=== PATIENT | male | born 1960 ===

== ENCOUNTER 2017-01-28 08:02 | Day surgery (SDC) | payer BC ==
[2017-01-28 08:16] VITALS: BMI 29.3
[2017-01-28] MEDS ORDERED: ceFAZolin IV 1 gm in Dextrose 0 GM/0 ML BAG IVPB ONE (08:22)
[2017-01-28] MEDS ORDERED: Lidocaine 1% Inj (20ml) ONE (08:22)
[2017-01-28] MEDS ORDERED: Bupivacaine/Epi 0.25%-1:200,000 10 ml PF inj IJ ONE (08:22)
[2017-01-28] MEDS ORDERED: Propofol 10 mg/ml Inj (20 ML) ONE (09:15)
[2017-01-28] MEDS ORDERED: Midazolam 2 MG/2 ML VIAL ONE (09:15)
[2017-01-28] MEDS ORDERED: ceFAZolin IV 2 gm in Dextrose 1 GM/50 ML BAG IVPB ONE (09:23)
[2017-01-28] MEDS ORDERED: HYDROmorphone 0.5 mg/0.5 ml ISec IVP PRN (10:01)
[2017-01-28] MEDS ORDERED: Oxycodone/Acetaminophen 5/325 mg Tab PO PRN (10:20)
--- NOTE | 2017-01-28 10:20 | PCM.SURG1 ---
Surgeon's Initial Post Op Note - Surgeon's Notes Surgeon: Laurie [employer] Manager: Kristina PGY2 Type of Anesthesia: General LMA, Local Pre-Operative Diagnosis: Left posterior neck mass Operative Findings: mass Post-Operative Diagnosis: same Operation Performed: excision of neck mass Specimen/Specimens Removed: neck mass Estimated Blood Loss: EBL {In ML}: 5 Blood Products Given: N/A Drains Used: No Drains Post-Op Condition: Good Date of Surgery/Procedure: 01/28/17 Time of Surgery/Procedure: 10:19
[2017-01-28] MEDS ORDERED: Lactated Ringer's 1,000 ML IV ONE (11:10)
[2017-01-28 11:47] VITALS: PULSE 74
[2017-01-28 12:18] VITALS: BP 100/61; RESP 20; TEMP 97.9; O2SAT 98
--- NOTE | 2017-01-28 20:17 | OP ---
PROCEDURE DATE: 01/28/2017 PREOPERATIVE DIAGNOSIS: Left upper posterior neck mass approximately 3 x 4 cm in size. POSTOPERATIVE DIAGNOSIS: Intramuscular left upper posterior neck mass. PROCEDURE DONE: 1. Excision of left upper neck mass intramuscular 4 x 3 cm in size. 2. Layered closure of the wound. SURGEON: Binu Sullivan MD. [employer]KE OVEN MASON: Edvin Acevedo, PGY-2 resident. ANESTHESIA: General anesthesia with LMA. ESTIMATED BLOOD LOSS: Around 10 mL. DRAINS: None. PATHOLOGY: Left upper neck mass sent for pathology. COMPLICATIONS: None. INTRAOPERATIVE FINDINGS: The patient had intramuscular mass of the left upper neck, possible lipoma, possible lymph node. INTRAOPERATIVE STEPS: This is a 56-year-old male who was diagnosed with left upper neck mass and pat ient was consented for excision of the left upper neck mass, brought to the OR, placed supine on the operating table. After induction of the anesthesia, the left upper neck and posterior scalp was prep ped and draped in a usual sterile fashion and vertical 4 cm incision was made after incising skin and subcutaneous tissue. The lateral and medial flaps were created and the mass appeared to be involvin g the left sternocleidomastoid muscles and the sternocleidomastoid muscles were divided vertically an d mass was identified and it was completely excised and it was sent off the table for the pathology. After that, the wound was irrigated and hemostasis was achieved. The sternocleidomastoid muscles we re repaired and the subcutaneous tissue was closed with 2-0 Vicryl, skin with a 4-0 Monocryl as well as 2-0 nylon interrupted suture and dry sterile dressing was applied. The patient tolerated the pro cedure well. Count of instruments and gauze was correct. There was no apparent complication. The p atient was extubated in the OR, sent to the postanesthesia care in stable condition. Binu Sullivan MD cc: [id number] TT: 01/28/2017 20:16:01 jeri
== END 2017-01-28 13:00 | disposition home or self-care (01) ==
LOC: C.SDS 08:02
PROVIDERS: ATTEND Surgery Surgical Critical Care
DX: R22.1 Localized swelling, mass and lump, neck (principal)
CPT/HCPCS: 21556; 88307; J0690; J1100; J1170; J1885; J2250; J2405; J2704; J3010; J7120